=== PATIENT | male | born 1955 | race Two or more races ===

== ENCOUNTER 2022-12-11 00:27 | Inpatient (IN) | payer MEDICARE, MEDICAID ==
[2022-12-11] VITALS (8 sets, daily range): BP systolic 115–149; BP diastolic 79–93
[~2022-12-11] VITALS: Ht 182.9 cm; Wt 85.3 kg
[2022-12-11] MEDS ORDERED: NALOXONE HCL 0.4 MG/ML VIAL ONE ×2 (00:51→00:57)
[2022-12-11] MEDS ORDERED: NALOXONE HCL 0.4 MG/ML VIAL IV ONE ×2 (01:15)
[2022-12-11 01:51] LABS: Basophils # (auto) 0 10 ^3/uL (0-0.2); Basophils % (auto) 0.5 % (0.0-2.0); Eosinophils # (auto) 0.1 10 ^3/uL (0-0.8); Hematocrit 44.5 % (41.0-53.0); Hemoglobin 14.8 g/dL (13.5-17.5); Lymphocytes # (auto) 2.5 10 ^3/uL (0.4-5.4); Lymphocytes % (auto) 36.1 % (10.0-50.0); Mean Corpuscular Hemoglobin 33.2 pg (28.0-32.0); Mean Corpuscular Hgb Conc. 33.2 g/dL (32.0-36.0); Mean Corpuscular Volume 100.1 fL (80.0-100.0); Monocytes # (auto) 0.7 10 ^3/uL (0-1.3); Neutrophils # (auto) 3.5 10 ^3/uL (1.6-8.6); Neutrophils % (auto) 51.4 % (37.0-80.0); Nucleated Red Blood Cells % 0.1 %; Red Blood Cells 4.44 10^6/uL (4.5-5.90); Red Cell Distribution Width 14.1 % (11.8-14.3); White Blood Cell 6.9 10^3/uL (4.4-10.8)
[2022-12-11 02:15] LABS: Anion Gap 4 (5-15); Blood Alcohol < 3.0 mg/dL (0-5); Blood Urea Nitrogen 12 mg/dL (7-18); Calcium 8.8 mg/dL (8.5-10.1); Carbon Dioxide 25 mmol/L (21-32); Chloride 112 mmol/L (98-107); Glucose 125 mg/dL (74-106); Potassium 3.9 mmol/L (3.5-5.1); Sodium 141 mmol/L (136-145)
[2022-12-11 02:16] LABS: Acetaminophen < 2.0 ug/mL (10-30); Salicylate 4.8 mg/dL (2.8-20.0)
[2022-12-11 02:19] LABS: Alanine Aminotransferase 21 U/L (16-61); Alkaline Phosphatase 45 U/L (45-117); Aspartate Aminotransferase 13 U/L (15-37); BUN/Creatinine Ratio 12.4 (10.0-20.0); Bilirubin, Total 0.4 mg/dL (0.2-1.0); GFR African American 100 mL/min; GFR Non-African American 82 mL/min; Total Protein 7.6 g/dL (6.4-8.2)
[2022-12-11 02:46] LABS: Urine Bacteria FEW /hpf (None Seen); Urine Blood Negative /uL (Negative); Urine Mucus FEW (None Seen); Urine Specific Gravity 1.015 (1.001-1.035); Urine WBC <1 /hpf (0 - 3)
[2022-12-11 02:52] LABS: Alcohol, Urine < 3.0 mg/dL (0-10); Amphetamine Screen, Urine NEGATIVE (NEGATIVE); Barbiturate Scree,Urine NEGATIVE (NEGATIVE); Benzodiazephine Screen, Urine NEGATIVE (NEGATIVE); Cocaine Screen, Urine NEGATIVE (NEGATIVE)
[2022-12-11] MEDS ORDERED: NALOXONE HCL 1MG/ML 2ML SYRINGE IV ONE (03:00)
[2022-12-11 03:01] LABS: Cannabinoid Screen, Urine POSITIVE (NEGATIVE); Opiate Scree,Urine NEGATIVE (NEGATIVE); Phencyclidine Screen, Urine NEGATIVE (NEGATIVE)
[2022-12-11] MEDS ORDERED: AMPICILLIN & SULBACTAM SODIUM 3 GM in SODIUM CHL 0.9% 100 ML IV ONE (04:45)
[2022-12-11] MEDS ORDERED: ONDANSETRON HCL 4 MG/2 ML VIAL IV PRN (06:15)
[2022-12-11] MEDS ORDERED: DOCUSATE SOD 100 MG CAP PO PRN (06:15)
[2022-12-11] MEDS ORDERED: MORPHINE SULFATE INJ 2 MG/ml SYRG IV PRN (06:15)
[2022-12-11] MEDS ORDERED: NITROGLYCERIN 0.4 MG SL TAB SL PRN (06:15)
[2022-12-11] MEDS ORDERED: HYDROcodone-ACET 5/325MG TAB PO PRN (06:15)
[2022-12-11] MEDS ORDERED: ACETAMINOPHEN 325 MG TAB PO PRN (06:15)
[2022-12-11] MEDS: SODIUM CHLORIDE 0.9% 1,000 ML IV SCH (06:47)
[2022-12-11] MEDS: cefTRIAXone 1GM/50ML D5W 50 ML IV SCH (06:48)
[2022-12-11 07:41] LABS: Calcium 7.9 mg/dL (8.5-10.1); Potassium 4.3 mmol/L (3.5-5.1)
[2022-12-11 07:46] LABS: Albumin 3.6 g/dL (3.4-5.0); BUN/Creatinine Ratio 11.1 (10.0-20.0); Bilirubin, Total 0.3 mg/dL (0.2-1.0); Total Protein 7.2 g/dL (6.4-8.2)
[2022-12-11 07:48] LABS: Basophils # (auto) 0 10 ^3/uL (0-0.2); Basophils % (auto) 0.5 % (0.0-2.0); Eosinophils # (auto) 0.1 10 ^3/uL (0-0.8); Eosinophils % (auto) 1.9 % (0.0-7.0); Hematocrit 42.5 % (41.0-53.0); Hemoglobin 14.2 g/dL (13.5-17.5); Lymphocytes # (auto) 2.9 10 ^3/uL (0.4-5.4); Lymphocytes % (auto) 41.2 % (10.0-50.0); Mean Corpuscular Hemoglobin 33.4 pg (28.0-32.0); Mean Corpuscular Hgb Conc. 33.5 g/dL (32.0-36.0); Mean Corpuscular Volume 99.7 fL (80.0-100.0); Monocytes # (auto) 0.7 10 ^3/uL (0-1.3); Neutrophils # (auto) 3.3 10 ^3/uL (1.6-8.6); Neutrophils % (auto) 46.4 % (37.0-80.0); Red Blood Cells 4.27 10^6/uL (4.5-5.90); Red Cell Distribution Width 14.1 % (11.8-14.3); White Blood Cell 7.2 10^3/uL (4.4-10.8)
[2022-12-11] MEDS: FAMOTIDINE (10MG/ML) 2ML VL IV SCH ×2 (08:45→21:02)
[2022-12-11] MEDS: ENOXAPARIN SOD 40 MG/0.4 ML SYRINGE SC SCH (08:46)
[2022-12-11] MEDS: AZITHROMYCIN 500MG/ 250ML 250 ML IV SCH (11:34)
[2022-12-11] MEDS ORDERED: RISP3TAB41 PO (16:12)
[2022-12-11] MEDS ORDERED: BUSP15TA60 PO (16:12)
[2022-12-11] MEDS ORDERED: GABA-339 PO (16:12)
[2022-12-11] MEDS ORDERED: CHOL500033 PO (16:12)
[2022-12-11] MEDS ORDERED: ATO40T PO (16:12)
[2022-12-11] MEDS ORDERED: BACL10TA PO (16:12)
[2022-12-11] MEDS ORDERED: QUET200T4 PO (16:12)
[2022-12-11] MEDS ORDERED: ESCI20TA PO (16:12)
[2022-12-11] MEDS ORDERED: PRA1C PO (16:12)
[2022-12-11] MEDS: QUEtiapine FUMARATE 25 MG TAB PO SCH (21:03)
[2022-12-11] MEDS: LORazepam 0.5 MG TAB PO PRN (22:05)
[2022-12-12 05:00] VITALS: BP 136/97
[2022-12-12] MEDS: SODIUM CHLORIDE 0.9% 1,000 ML IV SCH ×2 (05:54→15:35)
[2022-12-12] MEDS: cefTRIAXone 1GM/50ML D5W 50 ML IV SCH (05:56)
[2022-12-12] MEDS: LORazepam 0.5 MG TAB PO PRN (05:56)
[2022-12-12 08:03] LABS: Basophils # (auto) 0 10 ^3/uL (0-0.2); Basophils % (auto) 0.5 % (0.0-2.0); Eosinophils # (auto) 0.2 10 ^3/uL (0-0.8); Eosinophils % (auto) 2.8 % (0.0-7.0); Hemoglobin 14.7 g/dL (13.5-17.5); Lymphocytes # (auto) 2.4 10 ^3/uL (0.4-5.4); Lymphocytes % (auto) 41.1 % (10.0-50.0); Mean Corpuscular Hemoglobin 33.6 pg (28.0-32.0); Mean Corpuscular Hgb Conc. 34.1 g/dL (32.0-36.0); Mean Corpuscular Volume 98.7 fL (80.0-100.0); Monocytes # (auto) 0.6 10 ^3/uL (0-1.3); Monocytes % (auto) 10.4 % (0.0-12.0); Neutrophils # (auto) 2.6 10 ^3/uL (1.6-8.6); Neutrophils % (auto) 45.2 % (37.0-80.0); Nucleated Red Blood Cells % 0.1 %; Red Blood Cells 4.36 10^6/uL (4.5-5.90); Red Cell Distribution Width 14.3 % (11.8-14.3); White Blood Cell 5.7 10^3/uL (4.4-10.8)
[2022-12-12] MEDS: AZITHROMYCIN 500MG/ 250ML 250 ML IV SCH (08:10)
[2022-12-12 08:23] LABS: Potassium 4.1 mmol/L (3.5-5.1)
[2022-12-12 08:31] LABS: Albumin 3.5 g/dL (3.4-5.0); BUN/Creatinine Ratio 14.3 (10.0-20.0); Bilirubin, Total 0.5 mg/dL (0.2-1.0); Calcium 8.3 mg/dL (8.5-10.1); Total Protein 7.1 g/dL (6.4-8.2)
[2022-12-12 09:00] VITALS: BP 113/75
[2022-12-12] MEDS: ENOXAPARIN SOD 40 MG/0.4 ML SYRINGE SC SCH (09:36)
[2022-12-12] MEDS: FAMOTIDINE (10MG/ML) 2ML VL IV SCH ×2 (09:36→21:03)
[2022-12-12 17:00] VITALS: BP 142/98
[2022-12-12] MEDS: QUEtiapine FUMARATE 25 MG TAB PO SCH (21:04)
[2022-12-12 22:00] VITALS: BP 131/87
[2022-12-13] MEDS: LORazepam 0.5 MG TAB PO PRN (00:14)
[2022-12-13 05:00] VITALS: BP 136/82
[2022-12-13] MEDS: cefTRIAXone 1GM/50ML D5W 50 ML IV SCH (05:47)
[2022-12-13] MEDS: SODIUM CHLORIDE 0.9% 1,000 ML IV SCH (08:43)
[2022-12-13] MEDS: AZITHROMYCIN 500MG/ 250ML 250 ML IV SCH (08:43)
[2022-12-13 09:00] VITALS: BP 138/85
[2022-12-13] MEDS: FAMOTIDINE (10MG/ML) 2ML VL IV SCH ×2 (10:40→21:14)
[2022-12-13] MEDS: ENOXAPARIN SOD 40 MG/0.4 ML SYRINGE SC SCH (10:41)
[2022-12-13 13:00] VITALS: BP 147/88
[2022-12-13 17:00] VITALS: BP 122/86
[2022-12-13] MEDS: QUEtiapine FUMARATE 25 MG TAB PO SCH (21:14)
[2022-12-13 22:00] VITALS: BP 138/89
[2022-12-14] MEDS: SODIUM CHLORIDE 0.9% 1,000 ML IV SCH ×2 (00:55→17:35)
[2022-12-14 05:00] VITALS: BP 126/85
[2022-12-14] MEDS: cefTRIAXone 1GM/50ML D5W 50 ML IV SCH (05:39)
[2022-12-14] MEDS: LORazepam 0.5 MG TAB PO PRN (06:13)
[2022-12-14] MEDS: AZITHROMYCIN 500MG/ 250ML 250 ML IV SCH (08:06)
[2022-12-14] MEDS: ENOXAPARIN SOD 40 MG/0.4 ML SYRINGE SC SCH (10:31)
[2022-12-14] MEDS: FAMOTIDINE (10MG/ML) 2ML VL IV SCH (10:31)
[2022-12-14 22:00] VITALS: BP 142/88
[2022-12-14] MEDS: QUEtiapine FUMARATE 25 MG TAB PO SCH (22:26)
[2022-12-15] MEDS: LORazepam 0.5 MG TAB PO PRN (03:01)
[2022-12-15] MEDS: SODIUM CHLORIDE 0.9% 1,000 ML IV SCH (05:09)
[2022-12-15] MEDS: ENOXAPARIN SOD 40 MG/0.4 ML SYRINGE SC SCH (09:22)
[2022-12-15] MEDS: AZITHROMYCIN 250 MG TAB PO SCH (09:22)
[2022-12-15] MEDS: QUEtiapine FUMARATE 25 MG TAB PO SCH (21:48)
[2022-12-15 22:00] VITALS: BP 162/74
[2022-12-16] MEDS: SODIUM CHLORIDE 0.9% 1,000 ML IV SCH ×2 (02:55→19:35)
[2022-12-16 05:00] VITALS: BP_SYST 139; BP_SYST 151; BP_DIAS 86
[2022-12-16] MEDS: LORazepam 0.5 MG TAB PO PRN (05:52)
[2022-12-16 08:00] VITALS: BP 133/89
[2022-12-16] MEDS: AZITHROMYCIN 250 MG TAB PO SCH (09:33)
[2022-12-16] MEDS: ENOXAPARIN SOD 40 MG/0.4 ML SYRINGE SC SCH (09:34)
[2022-12-16 12:00] VITALS: BP 139/87
[2022-12-16 16:00] VITALS: BP 132/85
[2022-12-16] MEDS: QUEtiapine FUMARATE 25 MG TAB PO SCH (21:38)
[2022-12-16 22:00] VITALS: BP 117/71
[2022-12-17 05:09] VITALS: BP 130/87
[2022-12-17 09:00] VITALS: BP 125/79
[2022-12-17] MEDS: ENOXAPARIN SOD 40 MG/0.4 ML SYRINGE SC SCH (09:35)
[2022-12-17] MEDS: SODIUM CHLORIDE 0.9% 1,000 ML IV SCH (09:36)
[2022-12-17] MEDS: AZITHROMYCIN 250 MG TAB PO SCH (09:36)
[2022-12-17 13:00] VITALS: BP 135/86
[2022-12-17 13:37] LABS: Basophils # (auto) 0 10 ^3/uL (0-0.2); Basophils % (auto) 0.5 % (0.0-2.0); Eosinophils # (auto) 0.2 10 ^3/uL (0-0.8); Eosinophils % (auto) 2.8 % (0.0-7.0); Hematocrit 47.9 % (41.0-53.0); Hemoglobin 15.9 g/dL (13.5-17.5); Lymphocytes # (auto) 2.7 10 ^3/uL (0.4-5.4); Lymphocytes % (auto) 37.4 % (10.0-50.0); Mean Corpuscular Hemoglobin 32.8 pg (28.0-32.0); Mean Corpuscular Hgb Conc. 33.2 g/dL (32.0-36.0); Mean Corpuscular Volume 98.9 fL (80.0-100.0); Monocytes # (auto) 0.7 10 ^3/uL (0-1.3); Monocytes % (auto) 9.3 % (0.0-12.0); Neutrophils # (auto) 3.7 10 ^3/uL (1.6-8.6); Red Blood Cells 4.84 10^6/uL (4.5-5.90); Red Cell Distribution Width 13.7 % (11.8-14.3); White Blood Cell 7.3 10^3/uL (4.4-10.8)
[2022-12-17 14:04] LABS: Albumin 3.7 g/dL (3.4-5.0); Calcium 8.3 mg/dL (8.5-10.1); Potassium 4.2 mmol/L (3.5-5.1)
[2022-12-17 14:08] LABS: BUN/Creatinine Ratio 16.5 (10.0-20.0); Bilirubin, Total 0.7 mg/dL (0.2-1.0); Total Protein 7.6 g/dL (6.4-8.2)
[2022-12-17 16:58] VITALS: BP 147/72
[2022-12-17] MEDS: LORazepam 0.5 MG TAB PO PRN (19:10)
[2022-12-17] MEDS ORDERED: BUSP10TA90 PO ×3 (19:14)
[2022-12-17] MEDS: QUEtiapine FUMARATE 25 MG TAB PO SCH (21:39)
[2022-12-17] MEDS: risperiDONE 1 MG TAB PO SCH (21:39)
[2022-12-17] MEDS: BACLOFEN 10 MG TAB PO SCH (21:39)
[2022-12-17 22:00] VITALS: BP 109/87
[2022-12-18] MEDS: GABAPENTIN 300 MG CAP PO SCH ×4 (01:38→21:49)
[2022-12-18] MEDS: SODIUM CHLORIDE 0.9% 1,000 ML IV SCH ×2 (03:21→21:50)
[2022-12-18 05:00] VITALS: BP 130/68
[2022-12-18] MEDS: LORazepam 0.5 MG TAB PO PRN (05:14)
[2022-12-18] MEDS: BACLOFEN 10 MG TAB PO SCH ×3 (06:50→23:52)
[2022-12-18] MEDS: busPIRone HCL 10 MG TAB PO SCH ×3 (06:50→18:20)
[2022-12-18 09:00] VITALS: BP_SYST 115; BP_SYST 151; BP_DIAS 75; BP_DIAS 94
[2022-12-18] MEDS: risperiDONE 1 MG TAB PO SCH ×2 (09:24→23:52)
[2022-12-18] MEDS: ENOXAPARIN SOD 40 MG/0.4 ML SYRINGE SC SCH (09:26)
[2022-12-18] MEDS: ESCITALOPRAM OXALATE 20 MG PO SCH (09:26)
[2022-12-18] MEDS: AZITHROMYCIN 250 MG TAB PO SCH (09:26)
[2022-12-18 13:00] VITALS: BP_SYST 123; BP_SYST 135; BP_DIAS 64; BP_DIAS 80
[2022-12-18 17:00] VITALS: BP 101/67
[2022-12-18] MEDS: ATORVASTATIN 20 MG TAB PO SCH (18:20)
[2022-12-18] MEDS: QUEtiapine FUMARATE 25 MG TAB PO SCH (21:49)
[2022-12-18 22:00] VITALS: BP 104/68
[2022-12-19 05:00] VITALS: BP 125/71
[2022-12-19] MEDS: busPIRone HCL 10 MG TAB PO SCH ×3 (06:36→18:04)
[2022-12-19] MEDS: GABAPENTIN 300 MG CAP PO SCH ×3 (06:37→21:06)
[2022-12-19] MEDS: BACLOFEN 10 MG TAB PO SCH ×3 (06:37→21:06)
[2022-12-19 09:00] VITALS: BP 137/82
[2022-12-19] MEDS: risperiDONE 1 MG TAB PO SCH ×2 (09:21→21:07)
[2022-12-19] MEDS: ENOXAPARIN SOD 40 MG/0.4 ML SYRINGE SC SCH (09:22)
[2022-12-19] MEDS: AZITHROMYCIN 250 MG TAB PO SCH (09:23)
[2022-12-19] MEDS: ESCITALOPRAM OXALATE 20 MG PO SCH (09:25)
[2022-12-19 13:21] VITALS: BP 138/91
[2022-12-19] MEDS: SODIUM CHLORIDE 0.9% 1,000 ML IV SCH (14:28)
[2022-12-19] MEDS: ATORVASTATIN 20 MG TAB PO SCH (18:04)
[2022-12-19] MEDS: QUEtiapine FUMARATE 25 MG TAB PO SCH (21:06)
[2022-12-19 22:00] VITALS: BP 109/68
[2022-12-20 05:00] VITALS: BP 112/65
[2022-12-20] MEDS: BACLOFEN 10 MG TAB PO SCH ×3 (06:04→21:02)
[2022-12-20] MEDS: busPIRone HCL 10 MG TAB PO SCH ×3 (06:05→18:23)
[2022-12-20] MEDS: GABAPENTIN 300 MG CAP PO SCH ×3 (06:05→21:02)
[2022-12-20] MEDS: SODIUM CHLORIDE 0.9% 1,000 ML IV SCH ×2 (06:51→23:35)
[2022-12-20 09:00] VITALS: BP 135/66
[2022-12-20] MEDS: risperiDONE 1 MG TAB PO SCH ×2 (09:45→21:03)
[2022-12-20] MEDS: ENOXAPARIN SOD 40 MG/0.4 ML SYRINGE SC SCH (09:46)
[2022-12-20] MEDS: AZITHROMYCIN 250 MG TAB PO SCH (09:46)
[2022-12-20] MEDS: ESCITALOPRAM OXALATE 20 MG PO SCH (09:47)
[2022-12-20 16:15] VITALS: BP 157/77
[2022-12-20] MEDS: ATORVASTATIN 20 MG TAB PO SCH (18:23)
[2022-12-20] MEDS: QUEtiapine FUMARATE 25 MG TAB PO SCH (21:03)
[2022-12-20 22:00] VITALS: BP 138/72
[2022-12-21 05:00] VITALS: BP 142/89
[2022-12-21] MEDS: BACLOFEN 10 MG TAB PO SCH ×3 (05:55→22:31)
[2022-12-21] MEDS: GABAPENTIN 300 MG CAP PO SCH ×3 (05:55→22:30)
[2022-12-21] MEDS: busPIRone HCL 10 MG TAB PO SCH ×3 (05:55→18:25)
[2022-12-21 09:00] VITALS: BP 95/66
[2022-12-21] MEDS: ESCITALOPRAM OXALATE 20 MG PO SCH (10:00)
[2022-12-21] MEDS: risperiDONE 1 MG TAB PO SCH ×2 (11:02→22:30)
[2022-12-21] MEDS: AZITHROMYCIN 250 MG TAB PO SCH (11:03)
[2022-12-21 12:30] VITALS: BP 117/77
[2022-12-21 16:08] VITALS: BP 103/62
[2022-12-21] MEDS: SODIUM CHLORIDE 0.9% 1,000 ML IV SCH (16:15)
[2022-12-21] MEDS: ATORVASTATIN 20 MG TAB PO SCH (18:25)
[2022-12-21] MEDS: QUEtiapine FUMARATE 25 MG TAB PO SCH (22:30)
[2022-12-22] VITALS (7 sets, daily range): BP systolic 97–142; BP diastolic 66–74
[2022-12-22] MEDS: BACLOFEN 10 MG TAB PO SCH ×3 (06:09→21:24)
[2022-12-22] MEDS: busPIRone HCL 10 MG TAB PO SCH ×3 (06:09→18:18)
[2022-12-22] MEDS: GABAPENTIN 300 MG CAP PO SCH ×3 (06:09→21:23)
[2022-12-22] MEDS: ESCITALOPRAM OXALATE 20 MG PO SCH (10:00)
[2022-12-22] MEDS: AZITHROMYCIN 250 MG TAB PO SCH (10:13)
[2022-12-22] MEDS: risperiDONE 1 MG TAB PO SCH ×2 (10:13→21:23)
[2022-12-22] MEDS: ATORVASTATIN 20 MG TAB PO SCH (18:18)
[2022-12-22] MEDS: QUEtiapine FUMARATE 25 MG TAB PO SCH (21:24)
== END 2022-12-22 22:50 | disposition home or self-care (01) | DRG 817 ==
LOC: EDBD 00:27 → ER 00:27 → OVERFLOW 06:17 → DOU IN ICU 11:16 → TELE-EAST 21:25
PROVIDERS: ADMIT Nurse Practitioner Family; ATTEND Family Medicine
DX: T43.592A Poisoning by other antipsychotics and neuroleptics, intentional self-harm, initial encounter (principal); J96.01 Acute respiratory failure with hypoxia; G92.8 Other toxic encephalopathy; G93.1 Anoxic brain damage, not elsewhere classified; F33.3 Major depressive disorder, recurrent, severe with psychotic symptoms; J18.9 Pneumonia, unspecified organism; F43.10 Post-traumatic stress disorder, unspecified; F41.9 Anxiety disorder, unspecified; Z79.899 Other long term (current) drug therapy; Z91.51 Personal history of suicidal behavior; Y92.89 Other specified places as the place of occurrence of the external cause
CPT/HCPCS: 36415; 70450; 71045; 80053; 80307; 80320; 80329; 81001; 82140; 84484; 85025; 87081; 93005; 96365; 96366; 96375; 96376; 99291; G0378; J0696; J2405; J3490